=== PATIENT | male | born 1995 | race Caucasian/White ===

== ENCOUNTER 2016-06-13 13:34 | Emergency (ER) | payer MEDICAID ==
[~2016-06-13] VITALS: Wt 110.0 kg
[2016-06-13] MEDS ORDERED: AMOX1TAB10 PO (14:28)
[2016-06-13] MEDS ORDERED: IBUP-1542 PO (14:28)
[2016-06-13] MEDS ORDERED: PSEU120T51 PO (14:28)
--- NOTE | 2016-06-13 14:41 | ERD ---
ER Documentation Chief Complaint Date/Time DATE: 06/13/16 TIME: 14:38 Chief Complaint BILATERAL EAR PAIN HPI 20-year-old male has been having URI symptoms for a week, cough and subsequently had a ear drainage from the right ear today. He has had URI symptoms, no fevers or chills. ROS All systems reviewed and are negative except as per history of present illness. Medications Home Meds Active Scripts Ibuprofen* (Motrin*) 600 Mg Tab, 600 MG PO Q6, #30 TAB Prov:KAY ALMANZAR PA-C 06/13/16 Pseudoephedrine Hcl (Sudafed 12 Hour) 120 Mg Tablet.sa, 120 MG PO BID, #6 Prov:KAY ALMANZAR PA-C 06/13/16 Amoxicillin/Potassium Clav (Amox-Clav 875-125 mg Tablet) 875-125 mg Tab, 1 TAB PO BID for 7 Days, #14 TAB Prov:KAY ALMANZAR PA-C 06/13/16 PMhx/Soc Medical and Surgical Hx: pt denies Medical Hx History of Surgery: Yes (ear surgery?) Hx Alcohol Use: No Hx Substance Use: No Hx Tobacco Use: No Physical Exam Vitals Vital Signs Date Time Temp Pulse Resp B/P Pulse Ox O2 Delivery O2 Flow Rate FiO2 06/13/16 13:38 98.0 75 18 169/76 98 Physical Exam General: Well-developed, well-nourished. The patient appears in no acute distress. HEENT: Head is normocephalic, atraumatic. No scleral icterus. Pupils are equal , round, and reactive. Oral mucous membranes are moist. No pharyngeal erythema. TMs shows disruption at the 2 o'clock position on the right ear, mild drainage, no otorrhea or discharge, left ear is a black tubular structure appreciated in the canal, TM is visualized that is a normal exam, mastoids nontender Neck: Supple. Nontender. Lungs: Clear to auscultation. Normal air movement. Heart: Regular rate and rhythm. S1 and S2 are normal. No murmurs, gallops, or rubs. Abdomen: Soft, nontender, nondistended. Bowel sounds are normoactive. Extremities: No clubbing or cyanosis. Normal pulses. Moving extremities x 4. No weakness. Neurologic: Alert and oriented 3. No focal deficits. Skin: Normal turgor. No rash or lesions. Procedures/MDM 20-year-old male has had URI symptoms with a tympanic membrane perforation. Right ear shows a disruption, without evidence of foreign body, otitis externa or mastoiditis. The left ear shows a black tubular structure, patient reports a surgical history in his ear when he was at a young age approximately 2 years of age. He was advised to follow-up with ENT for reevaluation of this as well as for follow-up for TM rupture. Departure Diagnosis: Primary Impression: Tympanic membrane perforation Additional Impression: Acute URI Condition: Good Patient Instructions: Eardrum Rupture (Perforation), Uri, Viral, No Abx (Adult) Additional Instructions: Ear Nose throat SPECIALIST: YOU HAVE A MEDICAL CONDITION WHICH REQUIRES YOU TO SEE A SPECIALIST WITHIN THE NEXT 3-4 DAYS. PLEASE FOLLOW UP WITH YOUR PRIMARY PHYSICIAN FOR REFFERAL.IF YOU DO NOT HAVE A PRIMARY CARE PHYSICIAN AND/OR YOU CAN NOT AFFORD TO SEE A PHYSICIAN THE FOLLOWING RESOURCES HAVE BEEN SUPPLIED TO YOU. IT IS YOUR RESPONSIBILITY TO BE SEEN BY THE SPECIALIST KAY ALMANZAR PA-C Jun 13, 2016 14:41
== END 2016-06-13 15:43 | disposition home or self-care (01) ==
LOC: E/R 13:34
DX: H72.91 Unspecified perforation of tympanic membrane, right ear (principal); J06.9 Acute upper respiratory infection, unspecified
CPT/HCPCS: 99283

== ENCOUNTER 2018-07-16 20:01 | Emergency (ER) | payer SELFPAY ==
[~2018-07-16] VITALS: Ht 175.3 cm; Wt 119.6 kg
[~2018-07-16 20:01] MED LIST: AMOX1TAB10 PO; IBUP-1542 PO; PSEU120T12 PO
[2018-07-16 20:04] VITALS: BP 167/92; PULSE 85; RESP 19; Ht 175.3 cm; Wt 119.6 kg
[2018-07-16] MEDS ORDERED: IBUPROFEN 600 MG TAB PO ONE (22:30)
[2018-07-16] MEDS ORDERED: IBUP-1542 PO (23:23)
--- NOTE | 2018-07-16 23:25 | ERD ---
ER Documentation Chief Complaint Chief Complaint LEFT HAND INJ; WINDOW CLOSED ON HAND; [id number] AGO HPI 22-year-old male sustained a left hand injury after a window in his home closed shut onto his left hand. He has no restricted range of motion weakness. He has a small abrasion on the dorsum. He has a bruise over the dorsum of the metacarpals. ROS All systems reviewed and are negative except as per history of present illness. Medications Home Meds Active Scripts Ibuprofen* (Motrin*) 600 Mg Tab, 600 MG PO Q6, #15 TAB Prov:GERRY LEMUS MD 07/16/18 Ibuprofen* (Motrin*) 600 Mg Tab, 600 MG PO Q6, #30 TAB Prov:KAY ALMANZAR PA-C 06/13/16 Pseudoephedrine Hcl (Sudafed 12 Hour) 120 Mg Tablet.sa, 120 MG PO BID, #6 Prov:KAY ALMANZAR PA-C 06/13/16 Amoxicillin/Potassium Clav (Amox-Clav 875-125 mg Tablet) 875-125 mg Tab, 1 TAB PO BID for 7 Days, #14 TAB Prov:KAY ALMANZAR PA-C 06/13/16 Allergies Allergies: Coded Allergies: No Known Allergy (Unverified , 07/16/18) PMhx/Soc Medical and Surgical Hx: pt denies Medical Hx, pt denies Surgical Hx History of Surgery: Yes (ear surgery?) Hx Alcohol Use: No Hx Substance Use: No Hx Tobacco Use: No Smoking Status: Never smoker FmHx Family History: No diabetes, No coronary disease, No other Physical Exam Vitals Vital Signs Date Temp Pulse Resp B/P (MAP) Pulse Ox O2 O2 Flow FiO2 Time Delivery Rate 07/16/18 98.6 85 19 167/92 99 20:04 (117) Physical Exam Const: No acute distress Head: Atraumatic Eyes: Normal Conjunctiva ENT: Normal External Ears, Nose and Mouth. Neck: Full range of motion. No meningismus. Resp: Clear to auscultation bilaterally Cardio: Regular rate and rhythm, no murmurs Abd: Soft, non tender, non distended. Normal bowel sounds Skin: No petechiae or rashes Back: No midline or flank tenderness Ext: No cyanosis, or edema. Bruising mild swelling over the metacarpals of the left hand. No restricted range of motion weakness or deficits. Very superficial scrape without bleeding, open wound. Neur: Awake and alert Psych: Normal Mood and Affect Results 24 hrs Current Medications Medications Dose Sig/[place] Start Time Status Last (Trade) Ordered Route PRN Stop Time Admin Dose Reason Admin Ibuprofen 600 mg ONCE ONCE 07/16/18 DC 07/16/18 (Motrin) PO 22:30 22:35 07/16/18 22:31 Procedures/MDM X-ray left hand 3V interpreted by me: Scaphoid: Normal Bones: No fracture Joints: No dislocation Foreign body: None. Impression-normal left hand x-ray Patient was placed on left hand is bandaged. Patient is neurovascular intact af ter Nate bandage. Patient presents with signs and symptoms of left hand contusion without signs of fracture, dislocation, ischemia, deficits or infection. Discharged home with primary care follow-up and return precautions for fevers, redness, new or worsening symptoms. He was advised to recheck with primary doctor for pain next week. Departure Diagnosis: Primary Impression: Injury of hand Encounter type: initial encounter Laterality: left Qualified Codes: S69.92XA - Unspecified injury of left wrist, hand and finger(s), initial encounter Condition: Stable Patient Instructions: Sprain Hand Referrals: NO PRIMARY,CARE PHYSICIAN (PCP) Additional Instructions: X-ray appears normal. Ice at home. Recheck for new worsening symptoms-redness, fevers, or primary doctor for pain next week. GERRY LEMUS MD Jul 16, 2018 23:25
== END 2018-07-16 23:38 | disposition home or self-care (01) ==
LOC: FTE 20:01
DX: S69.92XA Unspecified injury of left wrist, hand and finger(s), initial encounter (principal); W22.8XXA Striking against or struck by other objects, initial encounter; Y92.9 Unspecified place or not applicable